=== PATIENT | male | born 2000 | race Caucasian/White ===

== ENCOUNTER 2020-06-04 19:31 | Emergency (ER) | payer OTHER ==
[~2020-06-04] VITALS: Ht 175.3 cm; Wt 54.4 kg
[~2020-06-04 19:31] MED LIST: AUGMENTIN400 MG/52 PO; NOHOMEMEDICATIONS
[2020-06-04 20:28] VITALS: BP 104/62
--- NOTE | 2020-06-06 13:46 | EKG ---
[place] [address] ELECTROCARDIOGRAM REPORT Name: FIDENCIO HUGHES Room: [facility]#: [id number] Admission: 06/04/20 Attend Phys: Discharge: 06/04/20 Date of : [birth year] Date of Service: 06/04/201934 Report #: [id number] THIS REPORT FOR: //name// [facility] ED Test Date: 2020-06-04 Test Time: 19:35:53 Pat Name: FIDENCIO HUGHES Department: Room: Gender: [employer]: [place] : 2000 Requested By: Ev Valiente Order Number: [id number] MD: Huang Gonzalez Measurements Intervals [place] Rate: 71 P: 87 TN: 140 QRS: 73 QRSD: 88 T: 67 QT: 364 QTc: 396 Interpretive Statements Sinus rhythm No previous ECG available for comparison Electronically Signed On 06-06-2020 13:45:54 3D ANIMATOR by Huang Gonzalez [email or web address] <ELECTRONICALLY SIGNED> By: Huang Gonzalez MD, [facility] 06/06/20 1345 34 34 Huang Gonzalez MD, FACC /EPI
== END 2020-06-04 20:29 | disposition home or self-care (01) ==
LOC: M.ERS 19:31
DX: R07.89 Other chest pain (principal)